=== PATIENT | male | born 1935 | race African-American/Black ===

== ENCOUNTER 2020-04-14 13:52 | Emergency (ER) | payer MEDICARE, SELFPAY ==
[2020-04-14 14:12] VITALS: BP 166/100; PULSE 87; RESP 18; TEMP 36.6; O2SAT 97; BMI 22.8
--- NOTE | 2020-04-14 14:37 | CT_ITS ---
EXAMINATION: CT HEAD WITHOUT CONTRAST CLINICAL INFORMATION: Fall, head injury. COMPARISON: None TECHNIQUE: Contiguous axial imaging was performed from the skull base to vertex without intravenous administration of contrast. This CT examination was performed using dose optimization techniques as appropriate, variously including the following: *Automated exposure control *Adjustment of mA and/or kV according to patient size (this includes techniques or standardized protocols for targeted exams where dose is matched to indication/reason for exam; i.e. extremities or head) *Use of iterative reconstruction technique DLP: 733 mGy-cm FINDINGS: There is no evidence of acute intracranial hemorrhage or territorial infarction. No abnormal mass effect or midline shift is seen. Pro to white matter differentiation is well preserved. No extra-axial fluid collections are identified. The lateral ventricles are symmetrical and enlarged with mild prominence of cortical sulci. There is diffuse bilateral periventricular hypodensity suggestive of chronic small vessel ischemic changes. No edema or midline shift seen. Bone windows reveal no calvarial abnormality. There is no scalp soft tissue abnormality. Bilateral paranasal sinuses and mastoid air cells are well-aerated. There is a dense right lens calcification and soft tissue debris in the right external auditory canal. CT/CT head/brain wo con IMPRESSION: No acute intracranial process seen. Moderate cerebral volume loss with chronic small vessel changes in both cerebral hemispheres.
--- NOTE | 2020-04-14 14:37 | ED_ITS ---
HPI - Fall General Chief Complaint: Fall Stated Complaint: fall Time Seen by Provider: 04/14/20 14:05 Source: EMS and RN notes reviewed Mode of arrival: EMS Limitations: other (Dementia) History of Present Illness HPI Narrative: 84-year-old male who presents the emergency department for evaluation of a laceration to his right forehead after falling. The patient is in a alf facility. The patient has dementia and cannot give me history. According to the transfer notes the patient has a laceration on his forehead status post fall with no other information provided. The patient does have a history of dementia, HIV positive, encephalopathy, blindness of the right eye. No information was provided about his last tetanus shot. Related Data Allergies Allergy/AdvReac Type Severity Reaction Status Date / Time No Known Allergies Allergy Unverified 01/04/20 19:50 [No Known Allergies*] Review of Systems Review of Systems: Yes Other (Unobtainable secondary to dementia) Constitutional: Constitutional: Reports as per HPI Eyes: Eyes: Reports as per HPI ENT: Reports as per HPI Cardiovascular: Cardiovascular: Reports as per HPI Respiratory: Respiratory: Reports as per HPI Gastrointestinal: Gastrointestinal: Reports as per HPI Genitourinary: Genitourinary: Reports as per HPI Musculoskeletal: Musculoskeletal: Reports as per HPI Integumentary/Breasts: Skin/Breast: Reports as per HPI Neurologic: Reports as per HPI and Reports Abnormal speech present Psychiatric: Psychiatric: Reports as per HPI Allergic/Immunologic: Allergic/Immunologic: Reports as per HPI [facility] Past Medical History Attestation statement: The following information was validated with the patient. [facility] Narrative: Patient has history of dementia, HIV disease, encephalopathy, adult failure to thrive, blindness the right eye. He does not smoke, drink alcohol or use drugs. Medical History Blindness right eye category 4, low vision left eye category 1 CAD (coronary artery disease) Dementia Encephalopathy Failure to thrive Heart failure HIV (human immunodeficiency virus infection) HTN (hypertension) Social History Social History Advance Directives: No Advance Directives Information Provided: Yes Physical Exam Vital Signs: Vital Signs: Last Vital Signs Temp 97.8 F 04/14/20 14:12 Pulse 87 04/14/20 14:12 Resp 18 04/14/20 14:12 BP 166/100 H 04/14/20 14:12 Pulse Ox 97 04/14/20 14:12 Body Mass Index 22.8 Const: General: cooperative Nutritional Appearance: average body habitus Orientation/consciousness: oriented to person Limitations: other limitations (Dementia) HENMT: Head: Yes normocephalic and Yes other (3.5 cm vertical laceration to the right eyebrow, full skin thickness) Ears: external ears normal General nose exam: Normal external nose present Face and sinus: Yes normal facial exam Mouth: Normal oral and palatal mucosa present Throat: Yes posterior oropharynx normal Eyes: Periorbital: periorbital findings normal Eyelids: Yes eyelids normal Conjunctivae: conjunctivae normal (Left thumb, right eye cornea and sclera are white) Neck: Neck: Yes normal visual inspection and Yes supple Thyroid: Thyroid normal Chest: Chest palpation & inspection: normal inspection of the chest and normal palpation of entire chest wall Resp: Effort & Inspection: normal respiratory effort and able to speak in complete sentences Auscultation: clear to auscultation bilaterally, no crackles, no rales and no rhonchi Cardio: Rate: regular rate Rhythm: regular rhythm Heart sounds: S1 normal heart sound present, S2 normal heart sound present and no murmurs GI: Inspection: Yes normal to inspection Palpation (GI): Soft to palpation, nontender and no guarding Auscultation: normal bowel sounds : General: Yes no CVA tenderness Back/Spine/Pelvis: Back: no CVA tenderness Cervical Spine: normal cervical lordosis Thoracic/Lumbar Spine: thoracic and lumbar spine normal to inspection Skin: General skin exam: no rashes or lesions noted Lesions: no lesions Rashes: no rashes Trauma: no lacerations or abrasions Neuro: General: oriented to person Cranial nerves: Yes CN's II-XII intact bilaterally Cognition (Neuro): normal cognition Speech: Abnormal speech pr esent Motor exam (neuro): 5/5 motor strength present throughout Extrem: Right upper extremity: normal to inspection and full ROM Psych: Appearance: grossly normal and well kempt Speech and movement: Normal speech and movement present Attitude: cooperative Course Course Course Narrative: 84-year-old male brought to the emergency department evaluation fall with laceration to right side of the face. The patient did have a suturable laceration to the right eyebrow, medial aspect which was repaired by me using 4.0 nylon sutures x4 sutures. Patient tolerated the procedure well. Given his age and potential for intracranial bleed/skull fracture a CT scan of the patient's head was ordered. 1531: CT scan of the head revealed no acute process per I did discuss this with the patient . The patient's wound was dressed with bacitracin and patient was discharged back to his care facility. Procedures Laceration Right eyebrow: Site: face (Distal aspect of right eyebrow, vertical laceration, full skin thickness) Side (If applicable): right Size (cm): 2.5 Description: linear Depth: involves muscle layer Local Anesthetic: lidocaine 1% Amount of anesthesia used (mL): 5 Pre-repair: wound explored Skin layer closed with: nylon Number of sutures: 4 Technique: simple, interrupted Discharge Plan Discharge Clinical Impression: Fall Qualifiers: Encounter type: initial encounter Qualified Code(s): W19.XXXA - Unspecified fall, initial encounter Face lacerations Qualifiers: Encounter type: initial encounter Qualified Code(s): S01.81XA - Laceration without foreign body of other part of head, initial encounter Patient Disposition: Home, Self-Care Instructions: Facial Laceration (ED) Additional Instructions: The CT scan of your head reveals no skull fracture or bleeding in the brain. Your laceration was repaired with 4 stitches. The stitches need to be removed in 7-10 days by your doctor. Apply bacitracin twice a day for 7 days. Take Tylenol (acetaminophen) 500 mg pills, 2 pills every 4 to 6 hours as needed for pain. Please return to the emergency department if her symptoms get worse or if you develop any new symptoms that are concerning to you.
[2020-04-14] MEDS: Lidocaine HCl 1 % MPF 5 ML VIAL 10 ML INFILTRATI (15:00)
[2020-04-14] MEDS: Bacitracin Oint 0.9 GM PACKET 1 APPL TOPICAL (15:34)
[2020-04-14 16:00] VITALS: BP 160/105; PULSE 78; RESP 18; TEMP 36.6; O2SAT 95
== END 2020-04-14 16:20 | disposition home or self-care (01) ==
PROVIDERS: Emergency Provider Emergency Medicine Emergency Medical Services
DX: S01.111A Laceration without foreign body of right eyelid and periocular area, initial encounter (principal); H57.11 Ocular pain, right eye; W01.0XXA Fall on same level from slipping, tripping and stumbling without subsequent striking against object, initial encounter; Y93.9 Activity, unspecified; Y92.099 Unspecified place in other non-institutional residence as the place of occurrence of the external cause; Y99.9 Unspecified external cause status
CPT/HCPCS: 12011; 70450; 99284

== ENCOUNTER 2021-08-25 09:24 | Emergency (ER) | payer MEDICARE, SELFPAY ==
[2021-08-25 09:51] VITALS: BP 52/28; PULSE 76; TEMP 35; O2SAT 93
[2021-08-25 10:29] LABS: Glucose, Whole Blood 151 mg/dL (60-115)
--- NOTE | 2021-08-25 10:38 | ED.GENADULT ---
HPI - General Adult General Chief complaint: Cardiac Arrest/CPR Stated complaint: BLOODY VOMIT,UNRESPONSSIVE FROM SNF PER EMS Time Seen by Provider: 08/25/21 09:35 Source: EMS Mode of arrival: EMS Limitations: physical limitation History of Present Illness HPI narrative: 85 years old male came in for evaluation of unresponsiveness. This is 85 years old male [facility] resident with history of coronary artery disease, dementia, failure to thrive, congestive heart failure, HIV, hypertension. Resident witnessed vomiting blood, then patient became unresponsive and EMS found him in rapid atrial fibrillation patient required 2 defibrillation at the field and 2 injection of epinephrine through right knee IO. On arrival patient is unresponsive, using BMV for ventilation, with the right IO lower extremities access, patient was hypotensive on arrival. Patient was intubated please refer to intubation note, right IJ central line was placed, patient was given IV fluids and blood O positive to support his blood pressure, patient was started on Levophed. Patient with evidence of upper GI bleed. Patient lost pulse, patient was given epinephrine 1 mg x 5, amp of bicarb, with fine VFib on the monitor patient required defibrillation x2 with no pulse return or change in the patient's status, was pronounced at 10:25 a.m. [facility] was notified with the . Case discussed with ME and case was declined # [id number]. by [employer]riley Related Data Allergies Allergy/AdvReac Type Severity Reaction Status Date / Time No Known Allergies Allergy Unverified 01/04/20 19:50 [No Known Allergies*] Review of Systems Review of Systems: Yes Unobtainable due to mental condition PMFSH Past Medical History Medical History Blindness right eye category 4, low vision left eye category 1 CAD (coronary artery disease) Dementia Encephalopathy Failure to thrive Heart failure HIV (human immunodeficiency virus infection) HTN (hypertension) Social History Social History Advance Directives: No Advance Directives Information Provided: No Physical Exam ED Vital Signs: Vital Signs - 24 hr 08/25/21 11:21 Pulse Rate 81 Respiratory Rate 11 L Blood Pressure 52/28 L Appearance: Unresponsive Head: Normal external exam. Normocephalic. Atraumatic. No Lozano signs noted. Eyes: 4 mm fixed pupil. ENT: No sign of trauma. Neck: Normal inspection. CVS: No heart sounds Respiratory: Intubated and ventilated Abdomen: Soft and nontender. Back: No CVA tenderness. Full range of motion noted. Skin: Skin warm and dry. Normal skin color. Normal skin turgor. No rashes/lesions/lacerations noted. Extremities: No lower extremity edema. Extremities exhibit normal range of motion. Extremities nontender. Neuro: Unresponsive Course Course Course Narrative: 85 years old male came in hypotensive due to hypovolemia and GI bleed, had an aggressive PCR resuscitation in the ED with no success, patient was pronounced at 10:25, ME declined the case, [facility] was notified. Procedures Central Line Placement Right IJ: Time Out Performed: Yes Patient Placed on Monitor/Pulse Ox: Yes MD Prep: mask, gown, gloves and other Central Line Prep: Chlorhexidine scrub Ultrasound Used for Placement: Yes Central Line Lumen Inserted: triple Post Procedure: sutured in place Complications: none Intubation Time out performed: Yes sedative: Etomidate Mg Given: 10 paralytic: Succinylcholine Mg Given: 50 Laryngoscope: Cotto ET Tube Size: 7.5 ET Tube Uncuffed: No Tube Secured Depth (cm): 22 Tube Secured Location: lips Tube Placement Confirmation: visualized tube passing through cords and confirmation by capnometry Patient Tolerated Procedure: well Intubation Complications: none Medical Decision Making Lab Data Labs: Lab Results 08/25/21 Range/Units 09:33 POC Glucose 151 H (60-115) mg/dL Critical Care Time Critical Care Time Critical Care Time: Yes Total Critical Care Time: 60 Attestation: I spent 60 minutes providing critical care service to the patient, this including time spent at the bedside to evaluate the patient, reassess the patient, monitoring vital signs, review old records, counseling the patient/family, discussing the case with ME. Discharge Plan Discharge Clinical Impression: Cardiac arrest
--- NOTE | 2021-08-25 10:47 | PC.NURSE ---
@ 10:40AM DR MOELLER REQUESTS CALL OUT TO [facility] FOR THIS PT AND GIVES A TIME OF 10:25AM #3: [facility] ANSWERS, TAKES PT INFO AND ASKS TO SPEAK WITH DR SAJAN MOELLER TAKES OVER CALL RIGHT AWAY DR NOVOA HERE ON FLOOR IN THE ER AND IS AWARE OF THIS PT EXPIRATION @ THAT TIME
--- NOTE | 2021-08-25 11:03 | PC.NURSE ---
@ THIS TIME DR MOELLER MAKES ME AWARE THE THE MEDICAL EXAMINERS OFFICE DECLINES THE CASE AND GIVES A CASE NUMBER OF: [id number]
[2021-08-25] MEDS: Etomidate 20 MG/10 ML VIAL 10 MG IVPUSH (11:08)
[2021-08-25] MEDS: Succinylcholine Chloride 200 MG/10 ML VIAL 100 MG IVPUSH (11:10)
--- NOTE | 2021-08-25 11:11 | PC.NURSE ---
Levophed was started at 0.05mcg/kg/hr (6.09 ml/hr) start time 1001
[2021-08-25 11:21] VITALS: BP 52/28; PULSE 81; RESP 11
--- NOTE | 2021-08-25 11:24 | PC.NURSE ---
Addendum entered by Ro Delacruz RN 08/25/21 11:26: blood discontinued at times of called at 1025. Original Note: cardiac arrest in progress, pt with Upper GI bleed, 1U PRBC untyped from blood back received. central line started on pt and blood began infusing at 1001. emergent pt with unstable vitals, hypotensive.
== END 2021-08-25 11:33 | disposition expired ==
PROVIDERS: Emergency Provider Emergency Medicine; PCP Hospitalist
DX: I46.9 Cardiac arrest, cause unspecified (principal); E86.1 Hypovolemia; K92.2 Gastrointestinal hemorrhage, unspecified; R62.7 Adult failure to thrive; I11.0 Hypertensive heart disease with heart failure; I50.9 Heart failure, unspecified; I25.10 Atherosclerotic heart disease of native coronary artery without angina pectoris; Z21 Asymptomatic human immunodeficiency virus [HIV] infection status; F03.90 Unspecified dementia, unspecified severity, without behavioral disturbance, psychotic disturbance, mood disturbance, and anxiety
CPT/HCPCS: 31500; 36556; 82947; 86900; 86901; 86920; 94002; 96374; 96375; 99281; 99291; J0171; J0330; P9016